=== PATIENT | female | born 1965 | race Caucasian/White ===

== ENCOUNTER → 2017-06-27 | Outpatient (CLI) | payer BC | END | disposition home or self-care (01) | LOC: PCVCIMAG 10:05 | DX: I08.0 Rheumatic disorders of both mitral and aortic valves (principal); E78.00 Pure hypercholesterolemia, unspecified; I71.2 Thoracic aortic aneurysm, without rupture; R94.31 Abnormal electrocardiogram [ECG] [EKG] | CPT/HCPCS: 93005; 93306 ==

== ENCOUNTER → 2018-06-27 | Outpatient (CLI) | payer BC ==
--- NOTE | 2018-06-27 11:03 | PCVCIMAG ---
APPROVED REPORT Study performed: 06/27/2018 09:48:42 EXAM: Comprehensive 2D, Doppler, and color-flow Echocardiogram Patient Location: Echo lab Status: routine BSA: 2.07 HR: 77 bpmBP: 124/82 mmHg Rhythm: NSR Other Information Study Quality: Adequate Indications cleft mitral valve repair, ASD repair, mitral regurgitation, ascending aortic aneurysm 2D Dimensions IVSd: 12.71 (7-11mm) LVDd: 44.36 mm PWd: 13.17 (7-11mm)Ascending Ao: 41.73 (22-36mm) LVDs: 31.27 (25-40mm) Left Atrium: 44.70 (27-40mm) Aortic Root: 37.25 mm LV Single Plane 4CH: 57.09 % LV Single Plane 2CH: 62.27 % Biplane EF: 60.3 % Volumes Left Atrial Volume (Systole) Single Plane 4CH: 72.57 mLSingle Plane 2CH: 67.74 mL LA ESV Index: 35.00 mL/m2 Aortic Valve AoV Peak Lei.: 2.15 m/s AO Peak Gr.: 18.56 mmHgLVOT Max P.55 mmHg LVOT Max V: 1.63 m/s Mitral Valve E/A Ratio: 0.8 MV Decel. Time: 264.10 ms MV E Max Lei.: 0.86 m/s MV A Lei.: 1.08 m/s IVRT: 110.73 ms Pulmonary Valve PV Peak Lei.: 1.01 m/sPV Peak Gr.: 4.06 mmHg Pulmonary Vein P Vein S: 0.34 m/sP Vein A: 0.41 m/s P Vein D: 0.41 m/sP Vein A Dur.: 138.4 msec P Vein S/D Ratio: 0.83 Tricuspid Valve TR Peak Lei.: 2.39 m/s TR Peak Gr.: 22.94 mmHg Left Ventricle The left ventricle is normal size. There is normal LV segmental wall motion. Mild concentric left ventricular hypertrophy. Left ventricular systolic function is normal. The left ventricular ejection fraction is within the normal range. LVEF is 55%. Grade I - abnormal relaxation pattern. Right Ventricle The right ventricle is normal size. The right ventricular systolic function is normal. Atria Left atrium is mildly dilated. The interatrial septum is intact with no evidence for an atrial septal defect. Normally functioning ASD repair. The right atrium size is normal. Aortic Valve The aortic valve is normal in structure. Mild aortic regurgitation. There is no aortic valvular stenosis. Mitral Valve Normally functioning cleft mitral valve repair. Mild mitral regurgitation. No evidence of mitral valve stenosis. Tricuspid Valve The tricuspid valve is normal in structure. Mild tricuspid regurgitation with PAP of 30 mmHg. Pulmonic Valve The pulmonary valve is normal in structure. Trace pulmonic regurgitation. Great Vessels The aortic root is normal in size. Ascending aorta is dilated to 4.2 cm. IVC is normal in size and collapses >50% with inspiration. Pericardium There is no pericardial effusion. There is no pleural effusion. <Conclusion> The left ventricle is normal size. Mild concentric left ventricular hypertrophy. Left ventricular systolic function is normal. Grade I - abnormal relaxation pattern. The right ventricle is normal size. Left atrium is mildly dilated. The right atrium size is normal. The interatrial septum is intact with no evidence for an atrial septal defect. Normally functioning ASD repair. Mild aortic regurgitation. Mild mitral regurgitation. Mild tricuspid regurgitation with PAP of 30 mmHg. Ascending aorta is dilated to 4.2 cm.
== END | disposition home or self-care (01) ==
LOC: PCVCIMAG 09:48
PROVIDERS: ATTEND Internal Medicine Cardiovascular Disease
DX: I08.3 Combined rheumatic disorders of mitral, aortic and tricuspid valves (principal); I71.2 Thoracic aortic aneurysm, without rupture
CPT/HCPCS: 93306